=== PATIENT | female | born 1945 ===

== ENCOUNTER 2021-01-29 10:15 | Inpatient (IN) | payer OTHER ==
[~2021-01-29] VITALS: Ht 152.4 cm; Wt 56.2 kg
[2021-01-29] MEDS ORDERED: METFORMIN HCL500 M3 PO (14:13)
[2021-01-29] MEDS ORDERED: ROSUVASTATIN CAL5 MG PO (14:14)
[2021-01-29] MEDS ORDERED: IRBESARTAN150 MG PO (14:14)
[2021-01-29] MEDS ORDERED: BONIVA150 MG PO (14:25)
== END 2021-02-07 11:59 | disposition home or self-care (01) | DRG 743 ==
LOC: O/R 02-05 06:10 → SURG-SUITE 02-05 06:10 → OB/GYN 02-05 10:15 → O/R 02-05 10:32 → SURG-SUITE 02-05 11:21 → OB/GYN 02-05 12:30 → SURG-SUITE 02-07 11:59
PROVIDERS: ADMIT Obstetrics & Gynecology Gynecologic Oncology; ATTEND Obstetrics & Gynecology Gynecologic Oncology
PROC: 0DBU0ZZ Excision of Omentum, Open Approach (ICD-10-PCS; 2021-02-05)
PROC: 07BC0ZX Excision of Pelvis Lymphatic, Open Approach, Diagnostic (ICD-10-PCS; 2021-02-05)
PROC: 0UT20ZZ Resection of Bilateral Ovaries, Open Approach (ICD-10-PCS; 2021-02-05)
PROC: 0UT70ZZ Resection of Bilateral Fallopian Tubes, Open Approach (ICD-10-PCS; 2021-02-05)
PROC: 3E1M38Z Irrigation of Peritoneal Cavity using Irrigating Substance, Percutaneous Approach (ICD-10-PCS; 2021-02-05)
PROC: 0UT90ZZ Resection of Uterus, Open Approach (ICD-10-PCS; principal; 2021-02-05 12:30)
DX: D25.1 Intramural leiomyoma of uterus (principal); N72 Inflammatory disease of cervix uteri; N84.0 Polyp of corpus uteri; N94.89 Other specified conditions associated with female genital organs and menstrual cycle; N83.292 Other ovarian cyst, left side